=== PATIENT | female | born 1990 ===

== ENCOUNTER → 2023-06-25 | Outpatient (CLI) | payer OTHER ==
[~2023-06-25] MED LIST: IOHEXOL 350 MG/ML 100ML IJ ONE
[2023-06-25 11:45] VITALS: BP 141/88; PULSE 66; RESP 18; O2SAT 98
[2023-06-25 12:17] VITALS: BP 136/87; PULSE 73; RESP 18; O2SAT 98
== END | disposition home or self-care (01) ==
LOC: Rad HDHVI 11:10
PROVIDERS: ATTEND Internal Medicine Cardiovascular Disease
DX: D25.9 Leiomyoma of uterus, unspecified (principal); K43.9 Ventral hernia without obstruction or gangrene; I10 Essential (primary) hypertension; R42 Dizziness and giddiness; R53.83 Other fatigue
CPT/HCPCS: 74175; 93306; G0463; Q9967